=== PATIENT | male | born 1960 | race Caucasian/White ===

== ENCOUNTER 2022-08-23 23:35 | Emergency (ER) | payer OTHER ==
[~2022-08-23] VITALS: Ht 175.3 cm; Wt 74.8 kg
[2022-08-24 00:16] VITALS: BP 144/84
[2022-08-24] MEDS ORDERED: TDAP [DIPH/PERTUSSIS/TET] 0.5 ML VIAL IM ONE ×2 (01:30→01:35)
== END 2022-08-24 02:09 | disposition home or self-care (01) ==
LOC: ER 23:37
DX: S01.01XA Laceration without foreign body of scalp, initial encounter (principal); I10 Essential (primary) hypertension; J45.909 Unspecified asthma, uncomplicated; W20.8XXA Other cause of strike by thrown, projected or falling object, initial encounter; Y93.89 Activity, other specified; Y92.89 Other specified places as the place of occurrence of the external cause; Y99.8 Other external cause status
CPT/HCPCS: 90715